=== PATIENT | male | born 1950 | race Caucasian/White ===

== ENCOUNTER → 2023-08-20 12:14 | Outpatient (REF) | payer MEDICARE, BC, SELFPAY ==
[2023-08-20 13:44] LABS: Blood Urea Nitrogen 21 mg/dl (9-20); Calcium 9.8 mg/dl (8.4-10.2); Carbon Dioxide 27 mmol/L (22-30); Chloride 102 mmol/L (98-107); Glucose 186 mg/dl (70-99); Potassium 4.9 mmol/L (3.5-5.1); Sodium 140 mmol/L (135-145); eGFR > 60.00
== END ==
LOC: REG 12:14
PROVIDERS: ATTENDING PHYSICIAN Specialist
DX: N40.1 Benign prostatic hyperplasia with lower urinary tract symptoms (principal); Z80.42 Family history of malignant neoplasm of prostate
CPT/HCPCS: 36415; 80048; 84153

== ENCOUNTER → 2023-09-01 15:05 | Outpatient (REF) | payer MEDICARE, BC, SELFPAY | LOC: RAD 15:05 | PROVIDERS: ATTENDING PHYSICIAN Specialist | DX: R10.32 Left lower quadrant pain (principal) | CPT/HCPCS: 74178; Q9967 ==

== ENCOUNTER 2023-09-06 22:04 | Inpatient (IN) | payer MEDICARE, BC, SELFPAY ==
[2023-09-06] VITALS (7 sets, daily range): BP systolic 114–143; BP diastolic 60–75; BMI 37.3
[2023-09-06] MEDS: TYLENOL 650 MG PO (16:10)
[2023-09-06 16:26] LABS: % Basophils 0.7 % (0-2); % Eosinophils 0.1 % (0-6); % Immature Granulocytes 0.6 % (0-0.5); % Lymphocytes 4.5 % (20.5-51.1); % Monocytes 10.7 % (1.7-9.3); % Neutrophils 83.4 % (42.2-75.2); Absolute Basophils 0.1 10^3/uL (0-0.2); Absolute Immature Granulocytes 0.1 10^3/uL (0-0.05); Absolute Lymphocytes 0.4 10^3/uL (1.2-3.4); Absolute Neutrophils 7.4 10^3/uL (1.4-6.5); Hematocrit 49.8 % (39.0-52.0); Hemoglobin 17.5 g/dL (13.0-18.0); Mean Corp Hgb Conc. 35.1 g/dL (33.0-37.0); Mean Corpuscular Hgb 30.4 pg (27.0-31.0); Mean Corpuscular Volume 86.5 fL (80.0-94.0); Mean Platelet Volume 8.7 fL (7.4-10.4); Nucleated Red Blood Cells % 0 % (-); Platelet Count 224 10^3/uL (130-400); Red Blood Cell Count 5.76 10^6/uL (4.70-6.10); Red Cell Dist. Width 13.6 % (11.5-14.5); White Blood Cell Count 8.9 10^3/uL (4.8-10.8)
[2023-09-06 16:38] LABS: Lactic Acid 3.4 mmol/L (0.7-2.0)
[2023-09-06 16:48] LABS: ALT (SGPT) 403 U/L (0-50); AST (SGOT) 437 U/L (17-59); Albumin 4.5 g/dl (3.5-5.0); Alkaline Phosphatase 82 U/L (38-126); Blood Urea Nitrogen 29 mg/dl (9-20); Calcium 9.8 mg/dl (8.4-10.2); Carbon Dioxide 20 mmol/L (22-30); Chloride 97 mmol/L (98-107); Glucose 221 mg/dl (70-99); Potassium 4.4 mmol/L (3.5-5.1); Sodium 135 mmol/L (135-145); Total Protein 7.4 g/dl (6.3-8.2); eGFR > 60.00
[2023-09-06] MEDS: NSS 1000 IV ×2 (18:15→21:01)
[2023-09-06 18:25] LABS: Urine Albumin Trace (Neg - Trace); Urine Bilirubin 1+ (Negative); Urine Character Clear (Clear); Urine Color Yellow; Urine Glucose 3+ (Negative); Urine Ketone 1+ (Negative); Urine Leukocyte Negative (Negative); Urine Nitrite Negative (Negative); Urine Occult Blood 2+ (Negative); Urine Urobilinogen Negative (Neg - 1+)
[2023-09-06 18:31] LABS: Urine Mucus Few; Urine Squamous Cell 0-2 /LPF (Few)
[2023-09-06 18:33] LABS: Urine Bacteria Many (Negative); Urine White Cell 0-2 /HPF (0-5)
[2023-09-06 18:40] LABS: COVID-19 Antigen Negative (Negative)
--- NOTE | 2023-09-06 18:50 | ED.GENMED ---
History of Present Illness
General
Chief Complaint: Fever
Time Seen by Provider: 09/06/23 17:47
Travel History
Have you had any contact with someone who has COVID-19?: No
Do you have any symptoms of coronavirus? Fever > 100 degrees, chills, cough, shortness of breath, sore throat, loss of taste or smell, muscle aches, or headache?: No
History of Present Illness
History of Present Illness:
73-year-old male presents the emergency department for evaluation of fever and general malaise developing earlier today. He also reports nausea, dry heaves, and diarrhea as well as urine frequency and penile pain. Diarrhea has been loose, not
watery, nonbloody. He denies any abdominal pain. No sick contacts at home. Denies any URI symptoms or coughing. Does note that he had an outpatient CT scan performed 5 days ago per his urologist that noted a nonobstructing 6 mm right renal
stone. Prior abdominal surgical history includes cholecystectomy
Past History
Past History
ED Past Medical History: Asthma, HTN and Other (SDH)
ED Past Surgical History: Orthopedic
Social History
Tobacco: Non-smoker
Alcohol: None
Drug: None
Personal:
Review of Systems
Review of Systems
Allergies reviewed?: Yes
All Other Systems: ROS reviewed and negative except as documented in HPI and ROS
Phy Exam
Physical Exam
Physical Exam:
GEN: Well appearing, NAD, WDWN
Eyes: PERRLA, EOMs intact, no scleral icterus
HENT: NCAT, oral mucosa moist
Lungs: CTAB, no wheezes, rales, rhonchi, normal chest wall excursion
Cardiac: Tachycardic, regular, no murmur
Abdomen: S, NT, ND, NABS, no masses or hepatosplenomegaly
Neuro: AO x 3, no focal deficits to BUE/BLE, normal sensation throughout
MSK: No gross deformity or ecchymosis. No edema. No digital clubbing
Skin: No rashes, petechiae. Normal color, no pallor or jaundice.
Psych: Calm, cooperative, proper hygiene
Course
Orders/Labs/Results
Orders:
Orders
09/06/23 16:05
Electrocardiogram (*1) Urgent
Reason for Study: Fatigue / Weakness
09/06/23 16:06
EKG- Treatment ONCE
09/06/23 16:10
Acetaminophen [Tylenol] 650 mg PO NOW STA
09/06/23 16:14
Complete Blood Count/With Diff Urgent
Comprehensive Metabolic Panel Urgent
Lactic Acid Urgent
Blood Culture Urgent
LATRICIA Source: Blood/Venous
Specimen Description:
Date Specimen was Collected: 09/06/23
Time Specimen was Collected: 16:06
09/06/23 18:15
0.9% Sodium Chloride 1000 ml [Nss] 1,000 ml IV BOLUS
09/06/23 18:16
COVID-19 Antigen Urgent
Source: Nasal Swab
Urine Culture Reflexed from UA [Urinalysis Reflex To Culture] Urgent
Date Specimen was Collected: 09/06/23
Time Specimen was Collected: 16:06
Urine Microscopic Reflex Cult Urgent
Blood Culture Urgent
LATRICIA Source: Blood/Venous
Specimen Description:
Influenza A+B Rapid Molecular Urgent
LATRICIA Source: Nasal Swab
Specimen Description:
Urine Culture Urgent
LATRICIA Source: U
Specimen Description:
Date Specimen was Collected: 09/06/23
Time Specimen was Collected: 16:06
09/06/23 18:28
Norovirus by PCR Urgent
LATRICIA Source: Feces/Stool
Specimen Description:
09/06/23 18:41
CT Abd/pelvis W Iv Cont Urgent
Comment:
Reason For Exam: N/V/D, transaminitis
09/06/23 20:17
Lactic Acid Urgent
09/06/23 20:38
0.9% Sodium Chloride 1000 ml [Nss] 1,000 ml IV BOLUS
CefTRIAXone [Rocephin] 1,000 mg IV NOW STA
Abnormal Lab Results
09/06/23 09/06/23
16:14 18:16
Abs Immat Gran (auto) 0.1 H 10^3/uL
(0-0.05)
Absolute Neuts (auto) 7.4 H 10^3/uL
(1.4-6.5)
Absolute Lymphs (auto) 0.4 L 10^3/uL
(1.2-3.4)
Absolute Monos (auto) 1.0 H 10^3/uL
(0.1-0.6)
Immature Gran % 0.6 H %
(0-0.5)
Neutrophils % 83.4 H %
(42.2-75.2)
Lymphocytes % 4.5 L %
(20.5-51.1)
Monocytes % 10.7 H %
(1.7-9.3)
Chloride 97 L mmol/L
(98-107)
Carbon Dioxide 20 L mmol/L
(22-30)
BUN 29 H mg/dl
(9-20)
Glucose 221 H mg/dl
(70-99)
Lactic Acid 3.4 H mmol/L
(0.7-2.0)
Total Bilirubin 2.0 H mg/dl
(0.2-1.3)
AST 437 H U/L
(17-59)
ALT 403 H U/L
(0-50)
Urine Ketones 1+ A
(Negative)
Ur Occult Blood Reflex 2+ A
(Negative)
Urine Bilirubin 1+ A
(Negative)
Urine RBC 11-15 A /HPF
(0-2)
Urine Bacteria (Reflex) Many A
(Negative)
Urine Glucose 3+ A
(Negative)
09/06/23 16:14
09/06/23 16:14
Vital Signs
Initial and Last Documented VS:
Initial Vital Signs
Temp Pulse Resp BP Pulse Ox
102.2 F H 131 23 116/73 94
09/06/23 16:01 09/06/23 16:01 09/06/23 16:01 09/06/23 16:01 09/06/23 16:01
Last Documented Vital Signs
Temp Pulse Resp BP Pulse Ox
99.8 F 104 13 114/62 99
09/06/23 18:24 09/06/23 18:15 09/06/23 18:15 09/06/23 18:10 09/06/23 18:22
MDM/Problems Addressed
MDM/Problems Addressed:
Patient resents with fever, nausea vomiting, diarrhea, and urinary frequency. Workup is remarkable for lactic acidosis, significant transaminitis although no biliary obstructive pattern, and bacteriuria. Given that he does have lower urinary tract
voiding symptoms as well as fever without clear source of infection we will start him on empiric antibiotics for presumed lower UTI. CT shows no evidence for obstructing uropathy or associated pyelonephritis. Patient had no further diarrheal
episodes in the emergency department making norovirus or other viral GI pathogen less likely. Unclear etiology to the transaminitis at this time, he has no focal upper abdominal tenderness, may be reactive in the setting of acute illness. Will
admit to the hospitalist service for further IV fluids and antibiotics
Comment
Comment:
EKG independently interpreted by me shows sinus tachycardia at a rate of [address] wave depression concerning for subendocardial ischemia
*Critical Care Note
Total Time (30-74mins, 75-104mins- exclusive of procedures): Not Applicable
ED Attending Note
-
Portions of this chart may have been created with voice recognition software.� Occasional wrong word or��sound alike� substitutions may have occurred due to the inherent limitations of voice recognition software.
Discharge Plan
Departure
Patient Disposition: Admit
Date of Disposition: 09/06/23
Time of Disposition: 20:52
Admit to: Med/Surg
Presentation/result/management discussed w/ accepting MD/DO: Hospitalist
Discharge Problem:
Acute UTI
Prescriptions:
No Action
tamsulosin 0.4 MG capsule
0.8 mg PO HS
rosuvastatin 10 MG tablet
10 mg PO QPM
acetaminophen [Tylenol Extra Strength] 500 mg Tablet
1,000 mg PO Q6HPRN PRN (Reason: mild pain)
cholecalciferol (vitamin D3) [Vitamin D3] 50 mcg (2,000 unit) Capsule
4,000 mcg PO DAILY
coQ10 (ubiquinol) 100 mg Capsule
100 mg PO DAILY
Steglatro 15 mg Tablet
15 mg PO DAILY
lisinopril 20 mg Tablet
20 mg PO DAILY
aspirin 81 mg Tablet,Delayed Release (Dr/Ec)
81 mg PO DAILY
diltiazem HCl 120 mg Capsule,Extended Release 24hr
120 mg PO DAILY
magnesium 200 mg Tablet
200 mg PO DAILY
Ocuvite Tablet
1 tab PO BID
omega 9-efo-tlv-fish oil [Fish Oil] 1,000 mg (120 mg-180 mg) Capsule
1 cap PO DAILY
Xarelto 20 mg Tablet
20 mg PO QPM
Referrals:
Ron Estrada MD [Family Provider] -
Interventions
Interventions:
*Risk Screen - Suicide Last Done: 09/06/23 16:01
*General Assessment Last Done: 09/06/23 16:01
*Neglect/Abuse Screening Last Done: 09/06/23 18:22
ED- Fall Risk Assessment Last Done: 09/06/23 18:22
*ED COVID-19 Vaccine History Last Done: 09/06/23 18:22
ED- Neurological Assessment Last Done: 09/06/23 18:22
ED-Skin Assessment Last Done: 09/06/23 18:22
[2023-09-06 20:38] LABS: Lactic Acid 1.6 mmol/L (0.7-2.0)
[2023-09-06] MEDS: ROCEPHIN 1000 MG IV (21:00)
--- NOTE | 2023-09-06 21:00 | EDRN ---
BRIGIDA Davenport in and spoke with patient about being admitted and results, patient resting comfortably at this time.
--- NOTE | 2023-09-06 21:37 | HPS.HSE ---
Family Physician
-
Family Physician: Chris Estrada
Chief Complaint
-
fever
History of Present Illness
73-year-old male with past medical history hypertension, BPH, asthma, sleep apnea, paroxysmal atrial fibrillation, hypertension, diabetes,, history of DVT, gout,, right subdural hematoma, hyperlipidemia, recent Mohs surgery, presenting for fever and
generalized malaise developing earlier today. He states that he had dry heaving, central abdominal pain and multiple episodes of watery diarrhea. Abdominal pain later resolved. He denied any urinary symptoms apart from dark urine and chronic
urinary frequency due to BPH. He had lethargy as well.
Patient states that he had reheated lobster yesterday which he thought was contributing to his diarrhea today.
He denies any prior history of liver problems. He previous had cholecystectomy. He denies alcohol or smoking. He denies upper respiratory symptoms or cough.
He had an outpatient CT scan 5 days ago as per his urologist that showed nonobstructing right renal stone.
Medical History
Past Medical History
Past Medical History: Reports Other (hypertension, BPH, asthma, sleep apnea, paroxysmal atrial fibrillation, hypertension, diabetes,, history of DVT, gout,, right subdural hematoma, hyperlipidemia, recent Mohs surgery,)
Past Surgical History: Reports None
Social History
Tobacco: Non-smoker
Alcohol: None
Drug: None
Family History
Family History: Not pertinent
Allergies / Home Medications
Allergies reflects when Allergies were last updated in [employer].
Home Medications with original date entered in [employer]
Allergy/Medication List:
Allergies
Allergy/AdvReac Type Severity Reaction Status Date / Time
pollen extracts Allergy CONGESTION Verified 09/06/23 16:01
Home Medications
tamsulosin 0.4 mg capsule 0.8 mg PO HS 08/20/19
rosuvastatin 10 mg tablet 10 mg PO QPM 09/16/21
acetaminophen 500 mg tablet (Tylenol Extra Strength) 1,000 mg PO Q6HPRN PRN mild pain 03/31/22
cholecalciferol (vitamin D3) 50 mcg (2,000 unit) capsule (Vitamin D3) 4,000 mcg PO DAILY 03/31/22
coQ10 (ubiquinol) 100 mg capsule 100 mg PO DAILY 03/31/22
ertugliflozin 15 mg tablet (Steglatro) 15 mg PO DAILY 03/31/22
aspirin 81 mg tablet,delayed release 81 mg PO DAILY 09/06/23
diltiazem HCl 120 mg capsule,extended release 24 hr 120 mg PO DAILY 09/06/23
lisinopril 20 mg tablet 20 mg PO DAILY 09/06/23
magnesium 200 mg tablet 200 mg PO DAILY 09/06/23
omega 3-ffg-nuy-fish oil 1,000 mg (120 mg-180 mg) capsule (Fish Oil) 1 cap PO DAILY 09/06/23
rivaroxaban 20 mg tablet (Xarelto) 20 mg PO QPM 09/06/23
vitamin A-vitamin C-vit E-min tablet 1 tab PO BID 09/06/23
Review of Systems
-
History Source: Patient
A 12 point ROS was completed and negative except as noted: Yes
Constitutional: Reports See HPI
EENT: Reports No Symptoms
Respiratory: Reports No Symptoms
Cardiac: Reports No Symptoms
Abdomen/GI: Reports See HPI
: Reports No Symptoms
Musculoskeletal: Reports No Symptoms
Skin: Reports No Symptoms
Neurological: Reports No Symptoms
Endocrine: Reports No Symptoms
Hematologic/Lymphatic: Reports No Symptoms
Psych: Reports No Symptoms
Physical Exam
Vital Signs
Vital Signs
Temp Pulse Resp BP Pulse Ox
99.5 F 104 13 114/62 99
09/06/23 21:08 09/06/23 18:15 09/06/23 18:15 09/06/23 18:10 09/06/23 18:22
Physical Exam
General: Well Developed, Well Nourished and No Apparent Distress
HEENT: NormoCephalic, Moist mucous membranes and Atraumatic
Respiratory: Clear
Cardiac: S1/S2 and Regular Rhythm; No Murmur or Rub
GI: Soft, Non Tender, Non Distended and Normal Bowel Sounds; No Organomegaly
Rectal: Deferred by Provider
Musculoskeletal: No Clubbing, No Cyanosis and No Edema
Skin: No Rash
Neuro: Nonfocal/grossly intact
Laboratory Results
-
09/06/23 16:14
09/06/23 16:14
Laboratory Results
Lactic Acid 1.6 mmol/L (0.7-2.0) 09/06/23 20:17
Total Bilirubin 2.0 mg/dl (0.2-1.3) H 09/06/23 16:14
AST 437 U/L (17-59) H 09/06/23 16:14
ALT 403 U/L (0-50) H 09/06/23 16:14
Alkaline Phosphatase 82 U/L (38-126) 09/06/23 16:14
Data Reviewed
-
Lab Data: Labs Reviewed by me
Old Records: Reviewed
Impression/Plan
-
IMPRESSION:
PLAN:
#Sepsis (fever, tachycardia,) secondary to choledocholithiasis/concurrent gastroenteritis
# Transaminitis
-IV fluids
-CT abdomen pelvis does not show any acute abnormality
-Urinalysis negative
-Check blood cultures
-Check stool studies, C. difficile, norovirus
-N.p.o.
-Zosyn
-MRCP
-GI consulted
Paroxysmal atrial fibrillation
-Continue diltiazem
-Hold Xarelto for impending procedures
Hypertension
-Continue lisinopril
Asthma
Sleep apnea
Type 2 diabetes
-Hold Steglatro
-Insulin sliding scale
BPH
-Continue tamsulosin
History of DVT
Gout
History of right subdural hematoma
Hyperlipidemia
-hold statin
Full code
DVT prophylaxis�SCDs
N.p.o.
--- NOTE | 2023-09-06 21:40 | EDRN ---
Patient ambulated to the restroom and back in bed, turned down lights for comfort.
[2023-09-07] VITALS (12 sets, daily range): BP systolic 104–154; BP diastolic 57–93; BMI 37.8; BMI 37.3
[2023-09-07] MEDS: NSS 1000 IV ×3 (00:14→19:21)
[2023-09-07] MEDS: ZOSYN 50 IV ×3 (00:15→13:02)
[2023-09-07] MEDS: FLOMAX 0.800000000000000044 MG PO ×2 (00:15→20:40)
[2023-09-07] MEDS: TYLENOL 1000 MG PO (01:02)
--- NOTE | 2023-09-07 01:14 | EDRN ---
Patient reported headache, medicated per orders with tylenol, also needed to urinate, used urinal and documented, resting comfortably at this time, call cortes in reach.
--- NOTE | 2023-09-07 02:43 | EDRN ---
Patient sleeping at this time, VSS, Call cortes in reach.
--- NOTE | 2023-09-07 06:33 | EDRN ---
Patient sleeping, did morning blood work, provided patient with some water, he is aware he is allowed to have small sips of water.
[2023-09-07 06:48] LABS: % Basophils 0.9 % (0-2); % Eosinophils 2.2 % (0-6); % Immature Granulocytes 0.3 % (0-0.5); % Lymphocytes 17.4 % (20.5-51.1); % Monocytes 17.2 % (1.7-9.3); Absolute Basophils 0.1 10^3/uL (0-0.2); Absolute Eosinophils 0.1 10^3/uL (0-0.7); Absolute Neutrophils 3.6 10^3/uL (1.4-6.5); Hematocrit 41.1 % (39.0-52.0); Hemoglobin 14.5 g/dL (13.0-18.0); Mean Corp Hgb Conc. 35.3 g/dL (33.0-37.0); Mean Corpuscular Volume 87.8 fL (80.0-94.0); Nucleated Red Blood Cells % 0 % (-); Platelet Count 156 10^3/uL (130-400); Red Blood Cell Count 4.68 10^6/uL (4.70-6.10); Red Cell Dist. Width 13.6 % (11.5-14.5); White Blood Cell Count 5.8 10^3/uL (4.8-10.8)
--- NOTE | 2023-09-07 06:57 | CON.GI ---
Addendum entered and electronically signed by Tahmina Chacon MD 09/07/23 15:03:
I saw and examined the patient.
The SPECTACLE TRUER's note was reviewed and I agree with the note.
Comment: This is a 73-year-old male who presented to the ER with acute onset of symptoms of dry heaves and then diarrhea since yesterday. He said that he had recently eaten out with his at a buffet but his did not get sick. he was
febrile and since admission he is undergoing workup for sepsis his blood cultures are positive for E. coli and he stool cultures came back positive for norovirus. He is also being evaluated by ID he has been started on antibiotics since admission.
CT was unremarkable. His diarrhea is slowly improving today. He also had abnormal LFTs with mostly transaminitis on admission which seems to be trending down. About a week ago apparently he had left groin pain and at that time had a CT which
showed nonobstructing kidney stones but he currently denies any symptoms of UTI no hematuria either. it was thought that his groin pain was referred pain from his hip OA.
Assessment and plan 1. gastroenteritis from norovirus continue supportive care with IV hydration and okay for clear liquids.
2. Abnormal LFTs and bacteremia with E. coli has been seen by Dr. Chandra from ID. Unclear if this is related to urosepsis although he currently has no symptoms of UTI or if it is related to bacterial translocation and less likely
choledocholithiasis, CT was completely unremarkable status post cholecystectomy. LFTs are trending down so will hold on MRCP and MRI for now maybe from sepsis, will get acute hepatitis serologies also, continue to trend LFTs if they are
persistently elevated or rising then will proceed with MRI and MRCP.
10
Addendum entered and electronically signed by FRANK Chambers 09/07/23 11:56:
norvovirus + with LFT's coming down hold MRI for now
Addendum entered and electronically signed by FRANK Chambers 09/07/23 09:02:
blood cx with gram neg bacilli await further data
Original Note:
Consultation
-
Date/Time Consultation Requested: 09/06/23 2330
Date/Time Consultation Performed: 09/07/23 0700
Requesting Provider: Ezra Robison MD
Performing Provider: FRANK Bentley, Tahmina Chacon MD
Reason for Consultation: increased LFT's fever
Medical History
Chief Complaint / HPI
Chief Complaint: dry heaves, diarrhea, fever
History of Present Illness:
Pt is a 73yo with male with history HTN, BPH, asthma, sleep apnea, paroxysmal atrial fibrillation, hypertension, DM, DVT, gout, SDH, hyperlipidemia, prior rene, recent Mohs surgery, presenting with onset of left groin pain last week. CT
completed 09/01 with and without contrast for LLQ pain with 6 mm right renal stone, mild enlarged prostate and hip osteo. He then started with fever and generalized malaise with noted dry heaves and central abdominal pain with diarrhea 1-2 days
prior to admission after eating frozen Lobster. On admission noted with tachycardia, lactate 3.4 with bili 2, AST 437, ALT 403 and alk phos 82 and concern for sepsis with some improved labs after admission. Repeat CT 09/06 without significant
abnormality and noted duodenal diverticulum.
At this time patient admits to dry heaves and diarrhea that has now improved with soft stool this am. With symptoms he did also have some mild abdominal pain. He admits to chronic GERD with TUMS use PRN. He denies dysphagia, hematemesis,
blood or black in stools. No hx EGD in past but colonoscopy [address] Welch with diverticulosis. Stool studies including norovirus, blood cx and urine cx pending.
Past Medical History
Past Medical History: Arrhythmias (PAF- Xarelto prior to admission), Asthma, HTN, NIDDM and Other (SHD, BPH, sleep apnea, DVT, Gout, mohs surgery)
Past Surgical History: Cholecystectomy
Social History
Tobacco: Non-Smoker
Alcohol: None
Drug: None
Personal:
Living: With Family
Employment: Retired
Family History
Family History: Other (daughter with hx rene)
Allergies / Home Medications
Allergy/AdvReac Type Severity Reaction Status Date / Time
pollen extracts Allergy CONGESTION Verified 09/06/23 16:01
Medication Instructions Recorded
tamsulosin 0.4 mg capsule 0.8 mg PO HS 08/20/19
rosuvastatin 10 mg tablet 10 mg PO QPM 09/16/21
acetaminophen 500 mg tablet 1,000 mg PO Q6HPRN PRN mild pain 03/31/22
(Tylenol Extra Strength)
cholecalciferol (vitamin D3) 50 4,000 mcg PO DAILY 03/31/22
mcg (2,000 unit) capsule (Vitamin
D3)
coQ10 (ubiquinol) 100 mg capsule 100 mg PO DAILY 03/31/22
ertugliflozin 15 mg tablet 15 mg PO DAILY 03/31/22
(Steglatro)
aspirin 81 mg tablet,delayed 81 mg PO DAILY 09/06/23
release
diltiazem HCl 120 mg 120 mg PO DAILY 09/06/23
capsule,extended release 24 hr
lisinopril 20 mg tablet 20 mg PO DAILY 09/06/23
magnesium 200 mg tablet 200 mg PO DAILY 09/06/23
omega 2-mcz-npt-fish oil 1,000 mg 1 cap PO DAILY 09/06/23
(120 mg-180 mg) capsule (Fish Oil)
rivaroxaban 20 mg tablet (Xarelto) 20 mg PO QPM 09/06/23
vitamin A-vitamin C-vit E-min 1 tab PO BID 09/06/23
tablet
Review of Systems
-
History Source: Patient
Constitutional: Reports Fever
EENT: Reports No Symptoms
Respiratory: Reports No Symptoms
Cardiac: Reports No Symptoms
Abdomen/GI: Reports Abdominal Pain (with vomiting and diarrhea now improved, recent left groin pain), Nausea, Vomiting and Diarrhea
: Reports Frequency (with hx BPH)
Musculoskeletal: Reports Other (left groin pain )
Skin: Reports No Symptoms
Neurological: Reports Weakness
Endocrine: Reports No Symptoms
Hematologic/Lymphatic: Reports No Symptoms
Vital Signs
Temp Pulse Resp BP Pulse Ox
99.5 F 85 15 135/67 96
09/06/23 21:08 09/07/23 06:30 09/07/23 06:30 09/07/23 06:00 09/07/23 00:45
Physical Exam
Exam
General: Well Developed, Well Nourished and No Apparent Distress
HEENT: Normocephalic and Anicteric
Respiratory: Clear
Cardiac: Regular Rhythm
GI: Soft, Non Tender and Non Distended
Genito-urinary: No Costovertebral Tender
Musculoskeletal: No Clubbing and No Cyanosis
Skin: Warm and Dry
Neuro: Awake, Alert and AO x 3
Psych: Calm
Results
WBC 5.8 10^3/uL (4.8-10.8) 09/07/23 06:11
Hgb 14.5 g/dL (13.0-18.0) 09/07/23 06:11
Hct 41.1 % (39.0-52.0) 09/07/23 06:11
MCV 87.8 fL (80.0-94.0) 09/07/23 06:11
Plt Count 156 10^3/uL (130-400) D 09/07/23 06:11
Absolute Neuts (auto) 3.6 10^3/uL (1.4-6.5) 09/07/23 06:11
Sodium 135 mmol/L (135-145) 09/06/23 16:14
Potassium 4.4 mmol/L (3.5-5.1) 09/06/23 16:14
Chloride 97 mmol/L (98-107) L 09/06/23 16:14
Carbon Dioxide 20 mmol/L (22-30) L 09/06/23 16:14
BUN 29 mg/dl (9-20) H 09/06/23 16:14
Creatinine 0.9 mg/dL (0.7-1.3) 09/06/23 16:14
Calcium 9.8 mg/dl (8.4-10.2) 09/06/23 16:14
Total Bilirubin 2.0 mg/dl (0.2-1.3) H 09/06/23 16:14
AST 437 U/L (17-59) H 09/06/23 16:14
ALT 403 U/L (0-50) H 09/06/23 16:14
Alkaline Phosphatase 82 U/L (38-126) 09/06/23 16:14
Diagnostic Image Results:
CT a/p 09/01/23 with and without contrast for LLQ pain with 6 mm right renal stone, mild enlarged prostate and hip osteo.
CT a/p IV 09/06/23 without significant abnormality and noted duodenal diverticulum.
Prior GI Procedures:
EGD: none
Colonoscopy: [address] Welch with diverticulosis.
Assessment / Plan
-
Pt is a 73yo with male with history HTN, BPH, asthma, sleep apnea, paroxysmal atrial fibrillation, hypertension, DM, DVT, gout, SDH, hyperlipidemia, prior rene, recent Mohs surgery, presenting with onset of left groin pain last week. CT
completed 09/01 with and without contrast for LLQ pain with 6 mm right renal stone, mild enlarged prostate and hip osteo. He then started with fever and generalized malaise with noted dry heaves and central abdominal pain with diarrhea 1-2 days
prior to admission after eating frozen Lobster. On admission noted with tachycardia, lactate 3.4 with bili 2, AST 437, ALT 403 and alk phos 82 and concern for sepsis with some improved labs after admission. Repeat CT 09/06 without significant
abnormality and noted duodenal diverticulum.
-sepsis/fever/tachycardia
-increase LFT's related to sepsis vs other
-recent left groin pain with renal stones hip osteo on CT
other medical problems:
-PAF on Xarelto prior to admission
-hx rene
-HTN
-asthma
-sleep apnea
-DM type 2
-BPH
-DVT
-gout
-SDH
-hyperlipidemia
PLAN:
etiology of symptoms related to biliary etiology with increased LFT's though improving on admission, norovirus with N/V/diarrhea, bacteremia, UTI vs other
await culture data
Ct stable
for MRI/ MRCP to exclude biliary process- CBD stone etc. pt with hx rene in past
currently on sips clear advance if improving
current on IV Zosyn
will follow
-
-
Thank you for consultation and allowing me to participate in the patient's care. Please call the acute care surgeon GI physician during the after hours with any questions or concerns.
[2023-09-07 07:33] LABS: ALT (SGPT) 282 U/L (0-50); AST (SGOT) 148 U/L (17-59); Albumin 3.6 g/dl (3.5-5.0); Alkaline Phosphatase 61 U/L (38-126); Blood Urea Nitrogen 24 mg/dl (9-20); Calcium 8.2 mg/dl (8.4-10.2); Carbon Dioxide 19 mmol/L (22-30); Chloride 106 mmol/L (98-107); Estimated Creatinine Clearance > 125 ml/min; Glucose 164 mg/dl (70-99); Lipase 32 U/L (23-300); Sodium 133 mmol/L (135-145); Total Bilirubin 1.6 mg/dl (0.2-1.3); Total Protein 5.8 g/dl (6.3-8.2); eGFR > 60.00
[2023-09-07 09:49] LABS: Glucose - Point of Care 160 mg/dl (70-99)
[2023-09-07] MEDS: MAG-TAB SR 84 MG PO (09:51)
[2023-09-07] MEDS: CARDIZEM CD 120 MG PO (09:51)
[2023-09-07] MEDS: ZESTRIL 20 MG PO (09:51)
[2023-09-07] MEDS: ASPIR LOW (ENTERIC COATED) 81 MG PO (09:51)
[2023-09-07] MEDS: NOVOLOG FLEXPEN-LOW RESISTANCE SC ×2 (09:51→12:49)
[2023-09-07] MEDS: VITAMIN D3 (cholecalciferol) 100 MCG PO (09:52)
--- NOTE | 2023-09-07 11:09 | ED TECH ---
MRI is waiting on a report from [facility] before they are able to scan pt. Nurse made aware.
[2023-09-07 12:21] LABS: Glucose - Point of Care 149 mg/dl (70-99)
--- NOTE | 2023-09-07 14:16 | CON.ID ---
Consultation
-
Date/Time Consultation Requested: 09/07/2023, 0908
Date/Time Consultation Performed: 09/07/2023, 1415
Requesting Provider: Dr. Kristopher Durán
Performing Provider: Dr. Ro Chandra
Reason for Consultation: Bacteremia
Chief Complaint / Past History
Chief Complaint
dry heaves, diarrhea
History of Present Illness
73 year old male with hx DM, BPH, HTN who presented to the ED 09/06 with one day history of dry heaves, abdominal pain, non-bloody watery diarrhea, and fever. The day prior to symptoms, he and his went to a buffet lunch at a restaurant. She is
fine. In ED fever 102.2, lactic acid 3.4. CT a/p no acute pathology. 1 week ago he had left groin pain; urologist ordered CT which showed non-obstructive renal stones. His Urologist deemed referred groin pain for hip osteoarthritis. Today pt
reports, diarrhea has improved. No more dry heaves. No change in urine function, no dysuria or flank pain.
Past History
Additional Past Medical History:
DM
HTN
asthma
pAfib
BPH
sleep apnea
DVT
gout
right SDH
MOH's
cholecystectomy
Allergy History:
pollen extracts Allergy (Verified 09/06/23 16:01)
CONGESTION
Medications Reviewed: Yes
Current Antibiotics:
Zosyn
Social History
Tobacco: Non-Smoker
Alcohol: None
Drug: None
Personal:
Family History
Family History: Not Pertinent
Review of Systems
Review of Systems
General: Fever, Chills and Change in Appetite
HEENT: Negative Sinus Problems, Headache or Pharyngitis
Respiratory: Negative Dyspnea or Cough
Gasteroenterology: Nausea and Vomiting (dry heaves)
Genital / Urological: Negative Dysuria or Flank Pain
Endocrine: Weakness
Skin / Hair / Nails: Negative Rash
Neurological: Negative Headache or Dizziness
All systems: All other systems were reviewed and were negative
Vital Signs
Temp Pulse Resp BP Pulse Ox
98.7 F 85 15 134/68 97
09/07/23 09:50 09/07/23 09:50 09/07/23 09:50 09/07/23 09:50 09/07/23 09:50
Selected Entries
09/06/23
16:01
Temp 102.2 F H
Physical Exam
Physical Exam
Constitutional: No Acute Distress, Comfortable and Obese
Eyes: No Conjunctival Hemorrhage and Sclera Anicteric
Oral: Other (dry mucous membrane)
Cardiovascular: Regular Rate and S1/S2
Gastrointestinal: Non Tender, Non Distended and Normal Bowel Sounds
Genito-Urinary: Negative CVA Tenderness
Extremities: Negative Edema
Neurological: AO x 3
Lab / Diagnostic Study Results
09/07/23 06:11
09/07/23 06:11
Abs Immat Gran (auto) 0.0 10^3/uL (0-0.05) 09/07/23 06:11
Absolute Neuts (auto) 3.6 10^3/uL (1.4-6.5) 09/07/23 06:11
Absolute Lymphs (auto) 1.0 10^3/uL (1.2-3.4) L 09/07/23 06:11
Absolute Monos (auto) 1.0 10^3/uL (0.1-0.6) H 09/07/23 06:11
Absolute Basos (auto) 0.1 10^3/uL (0-0.2) 09/07/23 06:11
Immature Gran % 0.3 % (0-0.5) 09/07/23 06:11
Neutrophils % 62.0 % (42.2-75.2) 09/07/23 06:11
Lymphocytes % 17.4 % (20.5-51.1) L 09/07/23 06:11
Monocytes % 17.2 % (1.7-9.3) H 09/07/23 06:11
Eosinophils % 2.2 % (0-6) 09/07/23 06:11
Basophils % 0.9 % (0-2) 09/07/23 06:11
Lactic Acid 1.6 mmol/L (0.7-2.0) 09/06/23 20:17
Ur Squamous Epith Cells 0-2 /LPF (Few) 09/06/23 18:16
Microbiology Results
Micro:
09/07/23 13:01 Blood Culture - Pending
Blood/Venous
09/07/23 07:08 - Final
Feces/Stool Positive for Norovirus GII
09/06/23 18:16 Urine Culture - Final
Urine No Significant Growth
09/06/23 16:14 Blood Culture - Preliminary
Blood/Venous Escherichia coli
Gram Stain - Final
09/07/23 07:08 C. difficile GDH Antigen & Toxins - Final
Feces/Stool C. difficile antigen positive, toxin negative.
Clostridium difficile present, but toxin not detected.
Patient may be a carrier, colonized with nontoxinogenic
strain or the level of toxin in sample is below detection
limits. This information should be used in conjunction with
the patient's clinical history.
09/07/23 07:08 Salmonella/Shigella Culture - Pending
Feces/Stool Campylobacter Culture - Pending
Shiga Toxin Test - Pending
09/06/23 18:16 Influenza Types A & B (RAFAL) - Final
Nasal Swab Negative for Influenza A & B, NAAT
Negative results must be combined with clinical observations
and patient history.
Nucleic Acid Amplification test (NAAT)performed on the
[employer] platform.
09/06/23 18:16 Blood Culture - Pending
Blood/Venous
09/06/23 CT a/p: No significant acute abnormality identified in the abdomen or pelvis, as described above.
Assessment / Plan
# Norovirus II gastroenteritis
- Enhanced contact isolation
- Continue supportive care.
# E. coli bacteremia 1 of 2 sets
- Unclear source at this time. Possible gut translocation during diarrheal illness
- Repeat blood cx's
-Narrow Zosyn to ceftriaxone.
# Fever due to norovirus and/or bacteremia
- Trend temps
# Acute elevated LFT's trending down
- CT a/p unremarkable
--- NOTE | 2023-09-07 14:33 | W.PN.HOSP.TC ---
Today's Communication/Plan
-
iv abx
id consulted
abx
adat
supportive care
adat
Assessment / Plan
Assessment / Plan
Physical Exam
General: Well Developed, Well Nourished and No Apparent Distress
HEENT: NormoCephalic, Moist mucous membranes and Atraumatic
Respiratory: Clear
Cardiac: S1/S2 and Regular Rhythm; No Murmur or Rub
GI: Soft, Non Tender, Non Distended and Normal Bowel Sounds; No Organomegaly
Rectal: Deferred by Provider
Musculoskeletal: No Clubbing, No Cyanosis and No Edema
Skin: No Rash
Neuro: Nonfocal/grossly intact
#Sepsis (fever, tachycardia,) secondary to choledocholithiasis/concurrent gastroenteritis
#Norovirus
# Transaminitis
#bacteremia
-IV fluids
-Transaminitis most likely from sepsis
-ID consulted
-F/u Repeat Blood cultures
-CT abdomen pelvis does not show any acute abnormality
-Urinalysis negative
-N.p.o.
-Zosyn
-GI consulted
-ADAT
Paroxysmal atrial fibrillation
-Continue diltiazem
-Hold Xarelto for impending procedures, restart tomorrow if all labs improving
Hyponatremia
-mild
-ctm with resuscitation
Hypertension
-Continue lisinopril
Asthma
Sleep apnea
Type 2 diabetes
-Hold Steglatro
-Insulin sliding scale
BPH
-Continue tamsulosin
History of DVT
Gout
History of right subdural hematoma
Hyperlipidemia
-hold statin
Full code
DVT prophylaxis�SCDs
Total time spent on today's encounter was 50 minutes which included time spent in counseling the patient/family regarding diagnosis and treatment plan as listed above, goals of care, and symptom management. Case was discussed with nursing staff,
specialists, and care coordinators/case management. All labs and imaging personally reviewed by me. Remainder the time spent in detailed review of previous records, lab data, imaging, and other medical provider documentation.
Anticipated Discharge: > 48 hours
Subjective/Interval History
-
Date of Service: September 07, 2023
Blood cultures positive, no other acute events
Objective Data
-
Labs:
Laboratory Results
09/07/23
06:11
WBC 5.8
Hgb 14.5
Hct 41.1
Plt Count 156 D
Sodium 133 L
Potassium 4.0
Chloride 106
Carbon Dioxide 19 L
BUN 24 H
Creatinine 0.7
Glucose 164 H
Calcium 8.2 L D
Total Bilirubin 1.6 H
AST 148 H
ALT 282 H
Alkaline Phosphatase 61
Vital Signs:
Vital Signs
Temp Pulse Resp BP Pulse Ox
98.7 F 85 15 134/68 97
09/07/23 09:50 09/07/23 09:50 09/07/23 09:50 09/07/23 09:50 09/07/23 09:50
I&O
09/06/23 09/07/23 09/08/23
06:59 06:59 06:59
Output Total 400 / 400
Balance -400 / -400
Review of Systems
-
History Source: Patient
All other systems: Not reviewed unless documented
Data Reviewed
-
CT Scan: Image personally visualized and interpreted and Report Reviewed by me
Labs: Labs Reviewed by me
[2023-09-07 16:17] LABS: Glucose - Point of Care 156 mg/dl (70-99)
[2023-09-07 16:59] LABS: Hepatitis B Surface Antigen Negative (Negative)
[2023-09-07 17:17] LABS: Hepatitis B Core Ab, Total Negative (Negative); Hepatitis B Surface Antibody Negative; Hepatitis C Antibody Negative (Negative)
[2023-09-07] MEDS: NOVOLOG FLEXPEN-LOW RESISTANCE 1 UNITS SC (17:20)
[2023-09-07] MEDS: ROCEPHIN 1000 MG IV (17:25)
[2023-09-07] MEDS: STERILE WATER FOR INJECTION 10 ML IV (17:26)
[2023-09-07 18:01] LABS: Hepatitis A IgM Antibody Negative (Negative)
[2023-09-07 21:42] LABS: Glucose - Point of Care 159 mg/dl (70-99)
[2023-09-08 04:36] LABS: Hematocrit 39.3 % (39.0-52.0); Hemoglobin 13.6 g/dL (13.0-18.0); Mean Corp Hgb Conc. 34.6 g/dL (33.0-37.0); Mean Corpuscular Hgb 30.6 pg (27.0-31.0); Mean Corpuscular Volume 88.5 fL (80.0-94.0); Mean Platelet Volume 8.9 fL (7.4-10.4); Platelet Count 164 10^3/uL (130-400); Red Blood Cell Count 4.44 10^6/uL (4.70-6.10); Red Cell Dist. Width 13.4 % (11.5-14.5); White Blood Cell Count 5.4 10^3/uL (4.8-10.8)
[2023-09-08 05:16] LABS: ALT (SGPT) 171 U/L (0-50); AST (SGOT) 57 U/L (17-59); Albumin 3.4 g/dl (3.5-5.0); Alkaline Phosphatase 62 U/L (38-126); Blood Urea Nitrogen 16 mg/dl (9-20); Calcium 8.2 mg/dl (8.4-10.2); Carbon Dioxide 26 mmol/L (22-30); Chloride 106 mmol/L (98-107); Estimated Creatinine Clearance > 125 ml/min; Glucose 156 mg/dl (70-99); Magnesium 2.1 mg/dl (1.6-2.3); Sodium 136 mmol/L (135-145); Total Bilirubin 0.9 mg/dl (0.2-1.3); Total Protein 5.5 g/dl (6.3-8.2); eGFR > 60.00
[2023-09-08] MEDS: NSS 1000 IV (05:38)
[2023-09-08 07:05] VITALS: BP 145/71
[2023-09-08 07:35] LABS: Glucose - Point of Care 148 mg/dl (70-99)
[2023-09-08] MEDS: NOVOLOG FLEXPEN-LOW RESISTANCE SC (07:42)
--- NOTE | 2023-09-08 08:19 | PN.CDI ---
CDI
- -
CDI:
Physician Documentation Request
Admit Date: 09/06/23 22:04
Dear Doctor Luis Armando,
Patient admitted with sepsis (fever, tachycardia).
09/06 Lactic acid result = 3.4
Please clarify which of the following most accurately describes the status of the patient's infection:
Sepsis only
Severe Sepsis
Other
Use of terms such as suspected, likely, concern for, or probable (associated with a specific diagnosis that is being evaluated, monitored, or treated as if it exists) are acceptable and can be coded in the inpatient setting, when documented at the
time of discharge.
Thank you,
Emerita Dillon RN, BSN
CDI Specialist
[place] text
Please use your independent medical judgment in providing your response.
--- NOTE | 2023-09-08 08:44 | W.PN.GI.CBS2 ---
Today's Communication / Plan
-
advance diet
ok to dc home from GI perspective if tolerates diet and repeat lfts in 1 week with PCP
abx duration per ID
Assessment / Plan
-
Pt is a 73yo with male with history HTN, BPH, asthma, sleep apnea, paroxysmal atrial fibrillation, hypertension, DM, DVT, gout, SDH, hyperlipidemia, prior rene, recent Mohs surgery, presenting with onset of left groin pain last week. CT
completed 09/01 with and without contrast for LLQ pain with 6 mm right renal stone, mild enlarged prostate and hip osteo. He then started with fever and generalized malaise with noted dry heaves and central abdominal pain with diarrhea 1-2 days
prior to admission after eating frozen Lobster. On admission noted with tachycardia, lactate 3.4 with bili 2, AST 437, ALT 403 and alk phos 82 and concern for sepsis with some improved labs after admission. Repeat CT 09/06 without significant
abnormality and noted duodenal diverticulum.
-sepsis/fever/tachycardia
-increase LFT's related to sepsis vs other
-recent left groin pain with renal stones hip osteo on CT
other medical problems:
-PAF on Xarelto prior to admission
-hx rene
-HTN
-asthma
-sleep apnea
-DM type 2
-BPH
-DVT
-gout
-SDH
-hyperlipidemia
PLAN:
Gastroenteritis secondary to norovirus symptoms markedly improved diet has been advanced
LFTs also have markedly improved and was most likely related to sepsis and dehydration.
Bacteremia from E. coli, doubt related to choledocholithiasis or cholangitis s/p CCY, probably related to urosepsis or gut translocation from gastroenteritis per ID. Currently on ceftriaxone duration
per ID, follow-up on repeat blood cultures
Okay to DC home from [facility] if tolerates diet and follow-up for repeat LFTs in 1 week with his PCP and follow-up in GI office in 2 to 3 months.
Will sign off and will be available as needed
Subjective
Subjective
Date of Service: September 08, 2023
Symptoms markedly improved diarrhea is resolving, his last bowel movement was yesterday and has not had any abdominal pain and no dry heaves
Objective
Data Reviewed
Laboratory Data:
Laboratory Results
09/08/23 03:58
09/08/23 03:58
Laboratory Results
Magnesium 2.1 mg/dl (1.6-2.3) 09/08/23 03:58
Total Bilirubin 0.9 mg/dl (0.2-1.3) 09/08/23 03:58
AST 57 U/L (17-59) 09/08/23 03:58
ALT 171 U/L (0-50) H 09/08/23 03:58
Alkaline Phosphatase 62 U/L (38-126) 09/08/23 03:58
Lipase 32 U/L (23-300) 09/07/23 06:11
Vital Signs and I&O:
Vital Signs
Temp Pulse Resp BP Pulse Ox
97.9 F 72 16 145/71 97
09/08/23 07:05 09/08/23 07:05 09/08/23 07:05 09/08/23 07:05 09/08/23 07:05
I&O
09/07/23 09/08/23 09/09/23
06:59 06:59 06:59
Intake Total 2039
Output Total 400 / 400 425 / 425
Balance -400 / -400 1615 / 1615
Physical Exam
Physical Exam
Cardiology: Normal Sinus Rhythm
Pulmonary: Clear
GI: Soft, Non Distended, Non Tender and Normal Bowel Sounds
[2023-09-08] MEDS: ZESTRIL 20 MG PO (08:47)
[2023-09-08] MEDS: ASPIR LOW (ENTERIC COATED) 81 MG PO (08:48)
[2023-09-08] MEDS: VITAMIN D3 (cholecalciferol) 100 MCG PO (08:48)
[2023-09-08] MEDS: MAG-TAB SR 84 MG PO (08:48)
[2023-09-08] MEDS: CARDIZEM CD 120 MG PO (08:48)
--- NOTE | 2023-09-08 11:16 | CM ---
Initial assessment completed with patient who lives with his in a 2 story home, no steps to enter, B/B on 2nd and 1/2 bath on 1st, Independent and drove [employer]. Uses a C-Pap at [facility]. No other DME. No O2. No psychiatric history, is HC POA.
Support system is , daughter/son-in-law and son. Pharmacy is [facility] in [place] and PCP is Dr. Chris Estrada. Anticipate HOME WITH NO NEEDS. Patient in agreement.
[2023-09-08 11:52] LABS: Glucose - Point of Care 256 mg/dl (70-99)
[2023-09-08] MEDS: NOVOLOG FLEXPEN-LOW RESISTANCE 3 UNITS SC (11:59)
--- NOTE | 2023-09-08 12:09 | W.PN.ID1 ---
Date of Service
Date of Service: September 08, 2023
Today's Communication
- Continue ceftriaxone.
-When final cx data available, will transition to po abx.
Assessment / Plan
# Norovirus II gastroenteritis
-symptoms resolved
- Continue Enhanced contact isolation
# E. coli bacteremia 1 of 2 sets
- Unclear source at this time. Suspect gut translocation during diarrheal illness
- Repeat blood cx's neg to date.
- Continue ceftriaxone.
-When final cx data available, will transition to po abx.
# Fever due to norovirus and/or bacteremia, resolved
# Acute elevated LFT's resolved
- CT a/p unremarkable
Chief Complaint
-: Bacteremia and Other (Norovirus)
Subjective / Review of Systems
No further diarrhea/abd pain/dry heaves.
Vital Signs / Physical Exam
Vital Signs
Vital Signs
Temp Pulse Resp BP Pulse Ox
97.9 F 72 16 145/71 97
09/08/23 07:05 09/08/23 08:48 09/08/23 07:05 09/08/23 08:48 09/08/23 07:05
Physical Exam
Constitutional: No Acute Distress
Cardiovascular: Regular Rate and S1/S2
Pulmonary: Clear
Gastrointestinal: Soft, Non Tender and Non Distended
Objective Data
Lab Data
Lab Results
09/08/23 03:58
09/08/23 03:58
Estimated Creat Clear > 125 ml/min 09/08/23 03:58
Lactic Acid 1.6 mmol/L (0.7-2.0) 09/06/23 20:17
Total Bilirubin 0.9 mg/dl (0.2-1.3) 09/08/23 03:58
AST 57 U/L (17-59) 09/08/23 03:58
ALT 171 U/L (0-50) H 09/08/23 03:58
Alkaline Phosphatase 62 U/L (38-126) 09/08/23 03:58
Most recent labs reviewed.
Micro Results:
09/07/23 07:08 Salmonella/Shigella Culture - Preliminary
Feces/Stool Culture in Progress
Campylobacter Culture - Preliminary
Culture in Progress
Shiga Toxin Test - Pending
09/06/23 16:14 Blood Culture - Preliminary
Blood/Venous Escherichia coli
Gram Stain - Final
09/08/23 03:58 Blood Culture - Pending
Blood/Venous
09/06/23 18:16 Blood Culture - Preliminary
Blood/Venous No Growth in 24 hours- Final report to follow
09/07/23 13:01 Blood Culture - Pending
Blood/Venous
09/07/23 07:08 - Final
Feces/Stool Positive for Norovirus GII
09/06/23 18:16 Urine Culture - Final
Urine No Significant Growth
09/07/23 07:08 C. difficile GDH Antigen & Toxins - Final
Feces/Stool C. difficile antigen positive, toxin negative.
Clostridium difficile present, but toxin not detected.
Patient may be a carrier, colonized with nontoxinogenic
strain or the level of toxin in sample is below detection
limits. This information should be used in conjunction with
the patient's clinical history.
09/06/23 18:16 Influenza Types A & B (RAFAL) - Final
Nasal Swab Negative for Influenza A & B, NAAT
Negative results must be combined with clinical observations
and patient history.
Nucleic Acid Amplification test (NAAT)performed on the
[employer] platform.
09/06/23 CT a/p: No significant acute abnormality identified in the abdomen or pelvis, as described above.
--- NOTE | 2023-09-08 14:05 | W.PN.HOSP.TC ---
Today's Communication/Plan
-
f/u cultures
ceftriaxone
restart xarelto
Assessment / Plan
Assessment / Plan
Physical Exam
General: Well Developed, Well Nourished and No Apparent Distress
HEENT: NormoCephalic, Moist mucous membranes and Atraumatic
Respiratory: Clear
Cardiac: S1/S2 and Regular Rhythm; No Murmur or Rub
GI: Soft, Non Tender, Non Distended and Normal Bowel Sounds; No Organomegaly
Rectal: Deferred by Provider
Musculoskeletal: No Clubbing, No Cyanosis and No Edema
Skin: No Rash
Neuro: Nonfocal/grossly intact
#Sepsis (fever, tachycardia,) secondary to viral illness/bacteremia
#Norovirus
# Transaminitis
#bacteremia
-IV fluids
-Transaminitis most likely from sepsis
-ID consulted
-F/u Repeat Blood cultures
-CT abdomen pelvis does not show any acute abnormality; possibly secondary to translocation from gut due to diarrheal illness
-Urinalysis negative
-Ceftriaxone
� ADAT
-GI consulted
Paroxysmal atrial fibrillation
-Continue diltiazem
-restart xarelto
Hyponatremia
-mild
-ctm with resuscitation
Hypertension
-Continue lisinopril
Asthma
Sleep apnea
Type 2 diabetes
-Hold Steglatro
-Insulin sliding scale
BPH
-Continue tamsulosin
History of DVT
Gout
History of right subdural hematoma
Hyperlipidemia
-hold statin
Full code
DVT prophylaxis�Xarelto
Anticipated Discharge: Within 24 hours
Subjective/Interval History
-
Date of Service: September 08, 2023
No acute vents, feels better today
Objective Data
-
Labs:
Laboratory Results
09/08/23
03:58
WBC 5.4
Hgb 13.6
Hct 39.3
Plt Count 164
Sodium 136
Potassium 4.0
Chloride 106
Carbon Dioxide 26
BUN 16
Creatinine 0.6 L
Glucose 156 H
Calcium 8.2 L
Total Bilirubin 0.9
AST 57
ALT 171 H
Alkaline Phosphatase 62
Vital Signs:
Vital Signs
Temp Pulse Resp BP Pulse Ox
97.9 F 72 16 145/71 97
09/08/23 07:05 09/08/23 08:48 09/08/23 07:05 09/08/23 08:48 09/08/23 07:05
I&O
09/07/23 09/08/23 09/09/23
06:59 06:59 06:59
Intake Total 0 / 2040
Output Total 400 / 400 425 / 425
Balance -400 / -400 1615 / 1615
Review of Systems
-
History Source: Patient
All other systems: Not reviewed unless documented
Data Reviewed
-
CT Scan: Image personally visualized and interpreted and Report Reviewed by me
Labs: Labs Reviewed by me
[2023-09-08 15:05] VITALS: BP 134/62
[2023-09-08 16:55] LABS: Glucose - Point of Care 199 mg/dl (70-99)
[2023-09-08] MEDS: XARELTO 20 MG PO (17:22)
[2023-09-08] MEDS: STERILE WATER FOR INJECTION 10 ML IV (17:23)
[2023-09-08] MEDS: ROCEPHIN 1000 MG IV (17:23)
[2023-09-08] MEDS: NOVOLOG FLEXPEN-LOW RESISTANCE 1 UNITS SC (17:24)
[2023-09-08] MEDS: FLOMAX 0.800000000000000044 MG PO (21:20)
[2023-09-08 21:29] LABS: Glucose - Point of Care 189 mg/dl (70-99)
[2023-09-08 23:29] VITALS: BP 125/63
[2023-09-09 06:08] LABS: Hematocrit 42.8 % (39.0-52.0); Hemoglobin 14.7 g/dL (13.0-18.0); Mean Corp Hgb Conc. 34.3 g/dL (33.0-37.0); Mean Corpuscular Hgb 30.6 pg (27.0-31.0); Mean Platelet Volume 8.9 fL (7.4-10.4); Platelet Count 170 10^3/uL (130-400); Red Blood Cell Count 4.81 10^6/uL (4.70-6.10); Red Cell Dist. Width 13.3 % (11.5-14.5); White Blood Cell Count 6.4 10^3/uL (4.8-10.8)
[2023-09-09 06:35] LABS: ALT (SGPT) 121 U/L (0-50); AST (SGOT) 38 U/L (17-59); Albumin 3.9 g/dl (3.5-5.0); Alkaline Phosphatase 72 U/L (38-126); Blood Urea Nitrogen 12 mg/dl (9-20); Calcium 8.7 mg/dl (8.4-10.2); Carbon Dioxide 27 mmol/L (22-30); Chloride 106 mmol/L (98-107); Estimated Creatinine Clearance > 125 ml/min; Glucose 177 mg/dl (70-99); Potassium 3.9 mmol/L (3.5-5.1); Sodium 138 mmol/L (135-145); Total Bilirubin 0.9 mg/dl (0.2-1.3); Total Protein 6.1 g/dl (6.3-8.2); eGFR > 60.00
[2023-09-09 07:00] VITALS: BP 123/68
[2023-09-09 08:07] LABS: Glucose - Point of Care 150 mg/dl (70-99)
[2023-09-09] MEDS: CARDIZEM CD 120 MG PO (08:37)
[2023-09-09] MEDS: ASPIR LOW (ENTERIC COATED) 81 MG PO (08:37)
[2023-09-09] MEDS: VITAMIN D3 (cholecalciferol) 100 MCG PO (08:37)
[2023-09-09] MEDS: NOVOLOG FLEXPEN-LOW RESISTANCE 1 UNITS SC (08:38)
[2023-09-09] MEDS: MAG-TAB SR 84 MG PO (08:38)
[2023-09-09] MEDS: ZESTRIL 20 MG PO (08:38)
--- NOTE | 2023-09-09 09:38 | W.PN.ID1 ---
Date of Service
Date of Service: September 09, 2023
Today's Communication
Transition ceftriaxone (d4) to cefuroxime 500mg po bid through 09/15/23
Assessment / Plan
# Norovirus II gastroenteritis
-symptoms resolved
# E. coli bacteremia 1 of 2 sets
- Unclear source at this time. Suspect gut translocation during diarrheal illness
- Repeat blood cx's neg to date.
- Transition ceftriaxone (d4) to cefuroxime 500mg po bid through 09/15/23.
# Fever due to norovirus and/or bacteremia, resolved
# Acute elevated LFT's resolved
- CT a/p unremarkable
Chief Complaint
-: Bacteremia and Other (Norovirus)
Subjective / Review of Systems
Feels good today.
Vital Signs / Physical Exam
Vital Signs
Vital Signs
Temp Pulse Resp BP Pulse Ox
98.1 F 75 16 125/63 97
09/09/23 07:00 09/09/23 08:38 09/09/23 07:00 09/09/23 08:38 09/09/23 07:00
Physical Exam
Constitutional: No Acute Distress and Comfortable
Pulmonary: Clear
Gastrointestinal: Soft, Non Tender and Non Distended
Neurological: AO x 3
Objective Data
Lab Data
Lab Results
09/09/23 05:49
09/09/23 05:49
Estimated Creat Clear > 125 ml/min 09/09/23 05:49
Lactic Acid 1.6 mmol/L (0.7-2.0) 09/06/23 20:17
Total Bilirubin 0.9 mg/dl (0.2-1.3) 09/09/23 05:49
AST 38 U/L (17-59) 09/09/23 05:49
ALT 121 U/L (0-50) H 02/29/24 05:49
Alkaline Phosphatase 72 U/L (38-126) 09/09/23 05:49
Most recent labs reviewed.
Micro Results:
09/06/23 16:14 Blood Culture - Final
Blood/Venous Escherichia coli
Gram Stain - Final
09/07/23 07:08 Salmonella/Shigella Culture - Final
Feces/Stool No Salmonella, Shigella, Aeromonas or Plesiomonas species
isolated.
Campylobacter Culture - Final
No Campylobacter species isolated.
Shiga Toxin Test - Pending
09/08/23 03:58 Blood Culture - Preliminary
Blood/Venous No Growth in 24 hours- Final report to follow
09/06/23 18:16 Blood Culture - Preliminary
Blood/Venous No Growth in 48 hours- Final report to follow
09/07/23 13:01 Blood Culture - Preliminary
Blood/Venous No Growth in 24 hours- Final report to follow
09/07/23 07:08 - Final
Feces/Stool Positive for Norovirus GII
09/06/23 18:16 Urine Culture - Final
Urine No Significant Growth
09/07/23 07:08 C. difficile GDH Antigen & Toxins - Final
Feces/Stool C. difficile antigen positive, toxin negative.
Clostridium difficile present, but toxin not detected.
Patient may be a carrier, colonized with nontoxinogenic
strain or the level of toxin in sample is below detection
limits. This information should be used in conjunction with
the patient's clinical history.
09/06/23 18:16 Influenza Types A & B (RAFAL) - Final
Nasal Swab Negative for Influenza A & B, NAAT
Negative results must be combined with clinical observations
and patient history.
Nucleic Acid Amplification test (NAAT)performed on the
[employer] platform.
09/06/23 CT a/p: No significant acute abnormality identified in the abdomen or pelvis, as described above.
Care Review
Plan reviewed with: Physician (Dr. Durán)
[2023-09-09] MEDS: NOVOLOG FLEXPEN-LOW RESISTANCE SC (11:36)
[2023-09-09 11:40] LABS: Glucose - Point of Care 200 mg/dl (70-99)
--- NOTE | 2023-09-09 12:49 | W.PN.HOSP.TC ---
Addendum entered and electronically signed by Kristopher Durán MD 09/10/23 17:08:
[id number]
Addendum entered and electronically signed by Kristopher Durán MD 09/10/23 16:52:
Severe Sepsis
Original Note:
Today's Communication/Plan
-
Can transition Ceftriaxone to cefuroxime 500 mg p.o. twice daily through 09/15/2023
�Tolerating diet
-GI consulted, can follow-up GI outpatient
�Follow-up LFTs in 1 week with PCP
Assessment / Plan
Assessment / Plan
Physical Exam
General: Well Developed, Well Nourished and No Apparent Distress
HEENT: NormoCephalic, Moist mucous membranes and Atraumatic
Respiratory: Clear
Cardiac: S1/S2 and Regular Rhythm; No Murmur or Rub
GI: Soft, Non Tender, Non Distended and Normal Bowel Sounds; No Organomegaly
Rectal: Deferred by Provider
Musculoskeletal: No Clubbing, No Cyanosis and No Edema
Skin: No Rash
Neuro: Nonfocal/grossly intact
#Sepsis (fever, tachycardia,) secondary to viral illness/bacteremia
#Norovirus gastroenteritis
# Transaminitis
#bacteremia, EColi
-Bacteremia most likely gut translocation from gastroenteritis
-IV fluids
-Transaminitis most likely from sepsis
-ID consulted
-F/u Repeat Blood cultures NGTD
-Can transition Ceftriaxone to cefuroxime 500 mg p.o. twice daily through 09/15/2023
-CT abdomen pelvis does not show any acute abnormality; possibly secondary to translocation from gut due to diarrheal illness
-Urinalysis negative
�Tolerating diet
-GI consulted, can follow-up GI outpatient
�Follow-up LFTs in 1 week with PCP
Paroxysmal atrial fibrillation
-Continue diltiazem
-restart xarelto
Hyponatremia
-mild
-ctm with resuscitation
�Resolved
Hypertension
-Continue lisinopril
Asthma
Sleep apnea
Type 2 diabetes
-Hold Steglatro
-Insulin sliding scale
BPH
-Continue tamsulosin
History of DVT
Gout
History of right subdural hematoma
Hyperlipidemia
-hold statin
Full code
DVT prophylaxis�Xarelto
More than 30 minutes spent in discharge including
Final examination of the patient
Summarizing hospital stay
Instructions for continuing care to all relevant caregivers
Preparation of discharge records, prescriptions, and referral forms
Total time spent (35 in minutes):
Anticipated Discharge: Today
Subjective/Interval History
-
Date of Service: September 09, 2023
no acute evetns, tolerating diet; stool soft but not watery
Objective Data
-
Labs:
Laboratory Results
09/09/23
05:49
WBC 6.4
Hgb 14.7
Hct 42.8
Plt Count 170
Sodium 138
Potassium 3.9
Chloride 106
Carbon Dioxide 27
BUN 12
Creatinine 0.6 L
Glucose 177 H
Calcium 8.7
Total Bilirubin 0.9
AST 38
ALT 121 H
Alkaline Phosphatase 72
Vital Signs:
Vital Signs
Temp Pulse Resp BP Pulse Ox
98.1 F 75 16 125/63 97
09/09/23 07:00 09/09/23 08:38 09/09/23 07:00 09/09/23 08:38 09/09/23 09:52
I&O
09/08/23 09/09/23 09/10/23
06:59 06:59 06:59
Intake Total 2039 / 2039 4380 / 4380
Output Total 425 / 425
Balance 1615 / 1615 4380 / 4380
Review of Systems
-
History Source: Patient
All other systems: Not reviewed unless documented
Data Reviewed
-
CT Scan: Image personally visualized and interpreted and Report Reviewed by me
Labs: Labs Reviewed by me
--- NOTE | 2023-09-09 12:53 | W.DS.TRANS ---
DC Summary - Provisioning Specialist
-
Discharge Instructions:
Discharge Diagnosis/Procedures Norovirus II gastroenteritis
E. coli bacteremia 1 of 2 sets
Acute elevated LFT's resolved
Diet Low Cholesterol,Low Fat,Low Residue
Activity As tolerated
Blood Work LFTs in 1 week with pcp
Instructions:
Stand-Alone Forms:
Changes to Home Medications: Yes
Discharge Medications:
DC Medications w/original date entered in [facility]
tamsulosin 0.4 mg capsule 0.8 mg PO HS 08/20/19
rosuvastatin 10 mg tablet 10 mg PO QPM 09/16/21
acetaminophen 500 mg tablet (Tylenol Extra Strength) 1,000 mg PO Q6HPRN PRN mild pain 03/31/22
cholecalciferol (vitamin D3) 50 mcg (2,000 unit) capsule (Vitamin D3) 4,000 mcg PO DAILY 03/31/22
coQ10 (ubiquinol) 100 mg capsule 100 mg PO DAILY 03/31/22
ertugliflozin 15 mg tablet (Steglatro) 15 mg PO DAILY 03/31/22
aspirin 81 mg tablet,delayed release 81 mg PO DAILY 09/06/23
diltiazem HCl 120 mg capsule,extended release 24 hr 120 mg PO DAILY 09/06/23
lisinopril 20 mg tablet 20 mg PO DAILY 09/06/23
magnesium 200 mg tablet 200 mg PO DAILY 09/06/23
omega 6-nvu-zgh-fish oil 1,000 mg (120 mg-180 mg) capsule (Fish Oil) 1 cap PO DAILY 09/06/23
rivaroxaban 20 mg tablet (Xarelto) 20 mg PO QPM 09/06/23
vitamin A-vitamin C-vit E-min tablet 1 tab PO BID 09/06/23
cefuroxime axetil 500 mg tablet 500 mg PO BID 7 days #14 tabs 09/09/23
Home Medication Changes
cefuroxime axetil 500 mg tablet 500 mg PO BID 7 days #14 tabs 09/09/23
Pending Results: No
--- NOTE | 2023-09-09 13:03 | CM ---
Patient has been medically cleared for discharge to home with no additional skilled services. Patient has arranged for transport home.
--- NOTE | 2023-09-09 13:30 | PTCARENOTE ---
Patient discharged home. This RN reviewed patient's discharge instructions/medications with patient who verbalized understanding. IV removed by this RN, patient dressed and gathered belongings in room independently. Patient being taken home by
spouse, transported down to [facility] via staff escort and wheelchair.
== END 2023-09-09 13:37 | disposition home or self-care (01) | DRG 872 ==
LOC: 2 NORTH 22:04
PROVIDERS: Nurse Practitioner Adult Health; ADMITTING PHYSICIAN Hospitalist; ATTENDING PHYSICIAN Internal Medicine; CONSULT PHYSICIAN Internal Medicine Gastroenterology; CONSULT PHYSICIAN Internal Medicine Infectious Disease; EMERGENCY PHYSICIAN Emergency Medicine; FAMILY PHYSICIAN Internal Medicine
DX: A41.51 Sepsis due to Escherichia coli [E. coli] (principal); A08.11 Acute gastroenteropathy due to Norwalk agent; N39.0 Urinary tract infection, site not specified; E87.1 Hypo-osmolality and hyponatremia; Z11.52 Encounter for screening for COVID-19; K80.50 Calculus of bile duct without cholangitis or cholecystitis without obstruction; I48.0 Paroxysmal atrial fibrillation; I10 Essential (primary) hypertension; J45.909 Unspecified asthma, uncomplicated; G47.30 Sleep apnea, unspecified; E11.9 Type 2 diabetes mellitus without complications; M10.9 Gout, unspecified; E78.5 Hyperlipidemia, unspecified; R65.20 Severe sepsis without septic shock
CPT/HCPCS: 74177; 80053; 81003; 81015; 82962; 83036; 83605; 83690; 83735; 85025; 85027; 86704; 86706; 86709; 86803; 87040; 87045; 87046; 87077; 87086; 87149; 87186; 87205; 87324; 87340; 87427; 87449; 87502; 87798; 87811; 93005; 96361; 96374; 99285; Q9967

== ENCOUNTER 2024-05-15 18:56 | Emergency (ER) | payer MEDICARE, BC, SELFPAY ==
[2024-05-15] VITALS (10 sets, daily range): BP systolic 97–140; BP diastolic 45–76; PULSE 84–93; BMI 36.2
[2024-05-15 19:32] LABS: % Basophils 0.7 % (0-2); % Eosinophils 2.9 % (0-6); % Immature Granulocytes 0.4 % (0-0.5); % Lymphocytes 19.5 % (20.5-51.1); % Monocytes 11.9 % (1.7-9.3); % Neutrophils 64.6 % (42.2-75.2); Absolute Basophils 0.1 10^3/uL (0-0.2); Absolute Eosinophils 0.4 10^3/uL (0-0.7); Absolute Immature Granulocytes 0.1 10^3/uL (0-0.05); Absolute Lymphocytes 2.3 10^3/uL (1.2-3.4); Absolute Monocytes 1.4 10^3/uL (0.1-0.6); Absolute Neutrophils 7.7 10^3/uL (1.4-6.5); Hematocrit 41.1 % (39.0-52.0); Hemoglobin 14.2 g/dL (13.0-18.0); Mean Corp Hgb Conc. 34.5 g/dL (33.0-37.0); Mean Corpuscular Hgb 30.4 pg (27.0-31.0); Mean Platelet Volume 9.2 fL (7.4-10.4); Nucleated Red Blood Cells % 0 % (-); Platelet Count 218 10^3/uL (130-400); Red Blood Cell Count 4.67 10^6/uL (4.70-6.10); Red Cell Dist. Width 12.8 % (11.5-14.5); White Blood Cell Count 11.9 10^3/uL (4.8-10.8)
[2024-05-15 19:43] LABS: Lactic Acid 1.6 mmol/L (0.7-2.0)
[2024-05-15 19:48] LABS: COVID-19 Antigen Negative (Negative)
[2024-05-15 19:55] LABS: ALT (SGPT) 19 U/L (0-50); AST (SGOT) 20 U/L (17-59); Albumin 4.5 g/dl (3.5-5.0); Alkaline Phosphatase 64 U/L (38-126); Blood Urea Nitrogen 27 mg/dl (9-20); Calcium 9.3 mg/dl (8.4-10.2); Carbon Dioxide 21 mmol/L (22-30); Chloride 103 mmol/L (98-107); Glucose 206 mg/dl (70-99); Potassium 4.4 mmol/L (3.5-5.1); Sodium 141 mmol/L (135-145); Total Bilirubin 0.7 mg/dl (0.2-1.3); Total Protein 6.7 g/dl (6.3-8.2); eGFR > 60.00
--- NOTE | 2024-05-15 20:37 | ED.GENMED ---
History of Present Illness
General
Chief Complaint: Abnormal Lab Value
Source: patient
Exam Limitations: none
Time Seen by Provider: 05/15/24 20:16
History of Present Illness
History of Present Illness:
This is a 74 year old male that comes in with c/o just not feeling well. states that he has been short tempered, achy, and a hard time getting up or down. States that this has been going on 3 weeks. States that his lactic acid was elevated at
the end of April. States that he had pain in the lumbar spine and on the right flank. Patient saw his PCP about this about 1.5 weeks ago and he thinks this is a L4 problem. Patient is scheduled for a MRi. States that he has been monitoring his BP
at home and for the past 2-3 days it has been low. States that today it was 117/50. States that he feels SOB, nauseated has a headache and lightheaded. Denies any fever, chills, chest pain, abd pain, vomiting, diarrhea, urinary burning.
Past History
Past History
ED Past Medical History: Arrthythmia (Atrial fib), Asthma, CVA (No residual weakness. ), HTN, Hypercholesterolemia, NIDDM and Other (Cervical arthritis C4-5, Sleep apnea, Urinary retention, )
ED Past Surgical History: Cholecystectomy, Orthopedic (Right total hip replacement. Left knee surgery, Left and right rotator cuff surgery, ), Urological (Left testicle removed) and Other (Deviated septum, Brain surgery, Cataracts. )
Social History
Tobacco: Non-smoker
Alcohol: None
Drug: None
Personal:
Living: with family
Review of Systems
Review of Systems
All Other Systems: ROS reviewed and negative except as documented in HPI and ROS
Constitutional: Reports no symptoms; Denies fever or chills
Respiratory: Reports trouble breathing; Denies cough
Cardiac: Reports no symptoms; Denies chest pain
ABD/GI: Reports nausea; Denies abdominal pain, vomiting or diarrhea
: Reports no symptoms; Denies dysuria, frequency or urgency
Musculoskeletal: Reports no symptoms
Skin: Reports no symptoms
Neurological: Reports headache and other (Lightheaded); Denies dizzy
Psychiatric: Reports no symptoms
Phy Exam
General Physical Exam
General Presentation: no apparent distress
General age: appears stated age
General Skin: warm and dry
General Habitus: elderly
General Mental: alert
General Hydration: appears well hydrated
ENT Exam
ENT Exam: TM's normal, pharynx normal and neck supple
Eye Exam
Eye Exam: EOMI
Cardiovascular Exam
Cardiovascular Exam: regular rate/rhythm, no edema and normal peripheral pulses
Pulmonary Exam
Pulmonary Exam: lungs clear, no respiratory distress, no rales, chest non tender, no crackles, no rhonchi, no wheezing and no cough
Gastrointestinal Exam
Gastrointestinal Exam: normal bowel sounds, non tender, soft, no organomegaly, no pulsatile mass and non distended
Musculoskeletal Exam
Musculoskeletal Exam: full ROM and no edema
Skin Exam
Skin Exam: normal color, warm/dry, no rash and no petechia
Psychiatric Exam
Psychiatric Exam: normal mood/affect
Course
Orders/Labs/Results
Orders:
Orders
05/15/24 19:01
Electrocardiogram (*1) Urgent
Reason for Study: Tachycardia
CXR2 [CR Chest - 2 Views ] Urgent
Comment:
Reason For Exam: cough
05/15/24 19:02
EKG- Treatment ONCE
05/15/24 19:08
COVID-19 Antigen Urgent
Source: Nasal Swab
Influenza A+B Rapid Molecular Urgent
LATRICIA Source: Nasal Swab
Specimen Description:
05/15/24 19:13
Complete Blood Count/With Diff Urgent
Comprehensive Metabolic Panel Urgent
05/15/24 19:20
Lactic Acid Urgent
05/15/24 20:36
0.9% Sodium Chloride 1000 ml [Nss] 1,000 ml IV BOLUS
05/15/24 20:40
CT Head W/o Iv Contrast Urgent
Comment:
Reason For Exam: Difficulty getting up and down.
05/15/24 20:42
Orthostatic VS- Treatment ONCE
05/15/24 22:04
Urinalysis Reflex To Culture Urgent
Date Specimen was Collected: 05/15/24
Time Specimen was Collected: 21:59
Urine Microscopic Reflex Cult Urgent
Abnormal Lab Results
05/15/24 05/15/24
19:13 22:04
WBC 11.9 H 10^3/uL
(4.8-10.8)
RBC 4.67 L 10^6/uL
(4.70-6.10)
Abs Immat Gran (auto) 0.1 H 10^3/uL
(0-0.05)
Absolute Neuts (auto) 7.7 H 10^3/uL
(1.4-6.5)
Absolute Monos (auto) 1.4 H 10^3/uL
(0.1-0.6)
Lymphocytes % 19.5 L %
(20.5-51.1)
Monocytes % 11.9 H %
(1.7-9.3)
Carbon Dioxide 21 L mmol/L
(22-30)
BUN 27 H mg/dl
(9-20)
Glucose 206 H mg/dl
(70-99)
Ur Occult Blood Reflex 3+ A
(Negative)
Urine Glucose 3+ A
(Negative)
05/15/24 19:13
05/15/24 19:13
Leukocytosis, Dehydration. Hyperglycemia. Lactic acid normal at 1.6, COVID and Influenza negative. Urine negative for infection.
Vital Signs
Initial and Last Documented VS:
Initial Vital Signs
Temp
99.7 F
05/15/24 18:58
Last Documented Vital Signs
Temp Pulse Resp BP Pulse Ox
99.7 F 76 20 133/63 98
05/15/24 20:21 05/15/24 21:35 05/15/24 21:35 05/15/24 21:35 05/15/24 21:35
MDM/Problems Addressed
Differential Diagnosis Includes:
Viral syndrome. UTI
MDM/Problems Addressed:
This is a 74 year old male that has been sick for the past 3 weeks. States that he is achy, states that he is short tempered, been nauseated, headache and lightheaded. States that his BP has been low at home.
Will check labs, CT head, give IV fluids
Back into see patient. Explained that his blood work shows dehydration. His CT of the head is negative for any acute process. Patient is negative for COVID and influenza and his Chest x-ray is normal. Patient to increase his fluid intake to 8-8oz
glasses daily and follow up with the family doctor. This is most likely a viral illness. Patient to return with any concerns.
Chronic conditions affecting care: DM
Acute Exacerbation and/or Progression of Chronic Illness:
NA
*Radiology
Radiology exam reviewed: radiology read reviewed (Chest-NO acute cardiopulmonary process CT head-NO acute intracranial abnormality. )
*Pulse Oximetry
Patient hypoxic: no
*EKG
Interpreted by ED Provider?: Yes
Heart Rate: 96
Rate: normal
Rhythm: sinus
[place]: normal axis
Interval: normal interval
QRS Pattern: normal QRS
Ischemia: no ischemia
*Pre Owned Sales Consultant Interpretation
Rate: normal
Heart Rate: 82
Rhythm: sinus
*Critical Care Note
Total Time (30-74mins, 75-104mins- exclusive of procedures): Not Applicable
ED Attending Note
-
Portions of this chart may have been created with voice recognition software.� Occasional wrong word or��sound alike� substitutions may have occurred due to the inherent limitations of voice recognition software.
Discharge Plan
Departure
Patient Disposition: Home (Routine Discharge)
Date of Disposition: 05/15/24
Time of Disposition: 22:31
Patient with high blood pressure during this ER visit?: Yes
Condition: Good
Covid-19: Negative COVID-19
Discharge Problem:
Viral syndrome, Dehydration
Instructions: Dehydration, Adult (DC), BLOOD PRESSURE
Prescriptions:
No Action
tamsulosin 0.4 MG capsule
0.8 mg PO HS
rosuvastatin 10 MG tablet
10 mg PO QPM
acetaminophen [Tylenol Extra Strength] 500 mg Tablet
1,000 mg PO Q6HPRN PRN (Reason: mild pain)
cholecalciferol (vitamin D3) [Vitamin D3] 50 mcg (2,000 unit) Capsule
100 mcg PO DAILY
Steglatro 15 mg Tablet
15 mg PO DAILY
lisinopril 20 mg Tablet
40 mg PO DAILY
aspirin 81 mg Tablet,Delayed Release (Dr/Ec)
81 mg PO DAILY
diltiazem HCl 120 mg Capsule,Extended Release 24hr
120 mg PO DAILY
magnesium 200 mg Tablet
250 mg PO BID
vitamin A-vitamin C-vit E-min Tablet
1 tab PO BID
omega 9-ktu-iah-fish oil [Fish Oil] 1,000 mg (120 mg-180 mg) Capsule
1 cap PO DAILY
Xarelto 20 mg Tablet
20 mg PO QPM
CoQ-10
300 mg PO DAILY
Referrals:
Ron Estrada MD [Family Provider] - Follow up in 2-3 days
Activity Restrictions/Additional Instructions:
As discussed, your blood work shows dehydration. You are negative for COVID and influenza. Your urine is negative for infection and your CT of the head is negative for any acute process. Your chest x-ray is normal. Please increase your water intake
to 8-8oz glasses daily. Follow up with the family doctor for recheck. IF YOU HAVE ANY OTHER CONCERNS PLEASE RETURN TO THE EMERGENCY ROOM.
Interventions
Interventions:
*Risk Screen - Suicide Last Done: 05/15/24 18:58
*General Assessment Last Done: 05/15/24 18:58
*Neglect/Abuse Screening Last Done: 05/15/24 18:58
ED- Fall Risk Assessment Last Done: 05/15/24 20:23
*ED COVID-19 Vaccine History Last Done: 05/15/24 18:58
Discharge Date and Time
Print Language: MONTSERRATIAN
[2024-05-15] MEDS: NSS 1000 IV (20:45)
[2024-05-15 22:17] LABS: Urine Albumin Negative (Neg - Trace); Urine Bilirubin Negative (Negative); Urine Character Clear (Clear); Urine Color Yellow; Urine Glucose 3+ (Negative); Urine Ketone Negative (Negative); Urine Leukocyte Negative (Negative); Urine Nitrite Negative (Negative); Urine Occult Blood 3+ (Negative); Urine Urobilinogen Negative (Neg - 1+)
[2024-05-15 22:34] LABS: Urine Hyaline Cast 0-2 /LPF (0-2); Urine White Cell 0-2 /HPF (0-5)
== END 2024-05-15 23:01 | disposition home or self-care (01) ==
LOC: EMR 18:56
PROVIDERS: Clinical Nurse Specialist Family Health; Emergency Medicine; EMERGENCY PHYSICIAN Emergency Medicine; FAMILY PHYSICIAN Internal Medicine
DX: B34.9 Viral infection, unspecified (principal); E86.0 Dehydration; E78.00 Pure hypercholesterolemia, unspecified; G47.30 Sleep apnea, unspecified; I10 Essential (primary) hypertension; E11.9 Type 2 diabetes mellitus without complications; J45.909 Unspecified asthma, uncomplicated; Z86.73 Personal history of transient ischemic attack (TIA), and cerebral infarction without residual deficits
CPT/HCPCS: 96360; 99284; 70450; 71046; 80053; 81003; 81015; 83605; 85025; 87502; 87811; 93005

== ENCOUNTER → 2024-05-23 07:10 | Outpatient (REF) | payer MEDICARE, BC, SELFPAY | LOC: MRI 3T 07:10 | PROVIDERS: ATTENDING PHYSICIAN Internal Medicine | DX: M54.41 Lumbago with sciatica, right side (principal); R29.2 Abnormal reflex | CPT/HCPCS: 72148 ==